=== PATIENT | female | born 1955 | race Caucasian/White ===

== ENCOUNTER 2017-03-27 17:28 | Emergency (ER) | payer BC ==
[2017-03-27 18:44] VITALS: BP 134/83
--- NOTE | 2017-03-27 19:32 | UC ---
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 Two five to ten minute episodes of "sharp ... almost cramping" pain one hour ago. No known injury or urinary symptoms. Patient stated she was able to play racketball this morning without difficulty." -pain started shortly prior to arrival. had 2 twinges of left mid flank pain. sharp significant pain. 1st episdoe lasted ~ 5mins, second one was slightly longer and intense and caused nausea but no vomiting. -no dysuria or frequency. no hematuria. no Fhx kidney stones. not on any meds. - History of Current Complaint Chief Complaint: UCBackPain Stated Complaint: LEFT SIDE PAIN Time Seen by Provider: 03/27/17 19:25 Pain Intensity: 0 - Allergy/Home Medications Allergies/Adverse Reactions: Allergies Allergy/AdvReac Type Severity Reaction Status Date / Time No Known Allergies Allergy Verified 03/27/17 18:38 Home Medications: Home Medications Ibuprofen TAB* [Advil TAB*] 400 mg PO Q6H PRN 03/27/17 [History Confirmed ] Vitamin THERAPEUTIC TAB* [Theragran TAB*] 1 tab PO DAILY 03/27/17 [History Confirmed 03/27/17] PMH/Surg Hx/FS Hx/Imm Hx Previously Healthy: Yes - Surgical History Surgical History: Yes Surgery Procedure, Year, and Place: Right Distal Radius ORIF, 2012, [facility] [place] - Family History Known Family History: Positive: Other - no Fhx kidney stones - Social History Alcohol Use: Occasionally Substance Use Type: None Smoking Status (MU): Never Smoked Tobacco Review of Systems Constitutional: Negative Skin: Negative Eyes: Negative ENT: Negative Respiratory: Negative Cardiovascular: Negative Gastrointestinal: Nausea, Other - left flank pain that came and resolved Genitourinary: Negative Motor: Negative Neurovascular: Negative Musculoskeletal: Negative Neurological: Negative Psychological: Negative Is Patient Immunocompromised?: No All Other Systems Reviewed And Are Negative: Yes Physical Exam Triage Information Reviewed: Yes Appearance: Well-Appearing, No Pain Distress Vital Signs: Initial Vital Signs Temp 98.3 F 03/27/17 18:36 Pulse 62 03/27/17 18:36 Resp 16 03/27/17 18:36 BP 134/83 03/27/17 18:36 Pulse Ox 100 03/27/17 18:36 Vital Signs Reviewed: Yes Eye Exam: Normal ENT: Positive: Pharynx normal, TMs normal Dental Exam: Normal Neck exam: Normal Neck: Positive: Supple, Nontender, No Lymphadenopathy Respiratory: Positive: Lungs clear, Normal breath sounds, No respiratory distress, No accessory muscle use, Wheezing. Negative: Crackles, Rhonchi, Stridor Cardiovascular Exam: Normal Cardiovascular: Positive: RRR, No Murmur, Pulses Normal, Brisk Capillary Refill Abdomen Description: Positive: Nontender - in all quadrants, NT in suprapubic area, Soft. Negative: CVA Tenderness (R), CVA Tenderness (L), Distended, Guarding, Hernia @, Hepatomegaly, Peritoneal Signs, Pulsatile Mass Bowel Sounds: Positive: Present Musculoskeletal Exam: Normal Neurological Exam: Normal Psychological Exam: Normal Skin Exam: Normal Course/Dx - Course Course Of Treatment: clinical picture may be c/w renal colic. UA + 3 blood, neg nitites, no sign WBCs. -if cx positive, will send in abx. -no CT available tonight. -pain has resolved and no indication ofr ER at this time but instructed to go with worsening unrelenting pain. o/w f/u Thursday w/ PCP to arrange for CT. She is very agreeable w/ this plan - Differential Dx - Multi-Symptom Differential Diagnoses: Urinary Tract Infection, Other - Renal Colic Provider Diagnoses: microscopic hematuria, left flank pain Discharge - Discharge Plan Condition: Stable Disposition: HOME Patient Education Materials: Renal Colic (ED) Referrals: Augustus Ramachandran MD [Primary Care Provider] - 3 Days Additional Instructions: I recommend follow up with your PCP as you likely will need a CT scan to further evaluate. We do not have CT available tonight and since your pain is minimal at this time, I don't feel an ER visit is necessary tonight. If your pain worsens and does not sub-side over the weekend, you should go to the ER. -We have given you a urine strainer to use to hopefully catch any stones that you may pass -taking OTC pain relievers may be helpful at time of pain as well. -we are sending a urine culture, although I have a low suspicion for infection. If the culture is positive in 1-2 days, we will call you to start an antibiotic. -Your PCP should be able to access these notes and results.
== END 2017-03-27 19:57 | disposition home or self-care (01) ==
LOC: UCCORT 17:28
DX: R31.29 Other microscopic hematuria (principal); R10.9 Unspecified abdominal pain
CPT/HCPCS: 81003; 87086; 99211; G0463